=== PATIENT | male | born 1950 | race Caucasian/White ===

== ENCOUNTER 2016-06-13 12:29 | Day surgery (SDC) | payer BC ==
[2016-06-13] MEDS ORDERED: FENTANYL PF 100MCG/2ML VIAL IV ONE (14:00)
[2016-06-13] MEDS ORDERED: PROPOFOL 10 MG/ML VIAL IV ONE (14:00)
[2016-06-13] MEDS ORDERED: LIDOCAINE 2% MDV (20MG/ML) 20ML VIAL IV ONE (14:00)
--- NOTE | 2016-06-14 16:00 | Operative Note ---
DATE OF SURGERY: 06/13/2016 REFERRING PROVIDER: Dm Walker DO PREOPERATIVE DIAGNOSIS: Heartburn, dyspepsia, family history of esophageal cancer, and personal history of colon polyps. POSTOPERATIVE DIAGNOSES: 1. Includes gastritis, irregular Z-line, rule out short-segment Boston's, ascending and sigmoid diverticula. 2. Descending and sigmoid polyps status post cold forceps removal. OPERATION: COLONOSCOPY and ESOPHAGOGASTRODUODENOSCOPY. Estimated Blood Loss: Minimal. Samples Obtained: Include gastric, GE junction, descending polyp, sigmoid polyp. PROCEDURE: After informed consent was obtained, the patient was placed in the left lateral decubitus position in the endoscopy suite, sedated and monitored by the Department of Anesthesia. Once sedated, a well-lubricated [id number] gastroscope was placed in the posterior oropharynx and under direct visualization passed to the proximal esophagus. The endoscope was advanced to the proximal, mid and distal esophagus. The GE junction was irregular. The remainder of the esophagus was normal. The gastric body demonstrated normal distensibility, normal rugal folds. There were patchy erythematous changes throughout the body and antrum. No ulcers or mass lesions were seen. The duodenal bulb and sweep were unremarkable. J-turn views of the proximal stomach were unrevealing. The endoscope was then straightened. Antral biopsies were obtained. GE junction biopsies were obtained. The endoscope was removed from the patient with no new findings noted. Digital rectal exam was unrevealing. A well-lubricated PCF-180 colonoscope was inserted into the rectum and advanced to the cecum. The preparation quality was good. The cecum was unremarkable. The ascending colon demonstrated a few diverticula, but the ascending colon and transverse colon were otherwise unremarkable. There was a diminutive polyp in the descending colon as well as in the sigmoid colon, each being removed with a cold forceps in piecemeal fashion. Minimal bleeding was noted. The polyps were retrieved without difficulty. There were a few sigmoid diverticula. The rectum was unremarkable in forward and in J-turn views. The endoscope was straightened, the rectal ampulla deflated and the endoscope was removed. RECOMMENDATIONS: I would suggest the patient resume his medications and diet. Further recommendations based on tissue histology, in particular, it is unclear whether he will require repeat upper endoscopy surveillance. If Boston's is found, a repeat scope in 1 year would be suggested. As for his colonoscopy surveillance, he very well will likely require repeat exam in 5 years. As always, thank you for allowing me to participate in the health care of your patients. Uriel Hammond DO CC: DO DENISE Carson
== END 2016-06-13 14:40 | disposition home or self-care (01) ==
LOC: HOP 12:29
PROVIDERS: ATTEND Internal Medicine Gastroenterology
DX: Z86.010 Personal history of colon polyps (principal); Z80.0 Family history of malignant neoplasm of digestive organs; D12.4 Benign neoplasm of descending colon; D12.5 Benign neoplasm of sigmoid colon; K21.9 Gastro-esophageal reflux disease without esophagitis; E11.9 Type 2 diabetes mellitus without complications; Z79.84 Long term (current) use of oral hypoglycemic drugs; E78.00 Pure hypercholesterolemia, unspecified
CPT/HCPCS: 45380; 43239; 00810; J3010